=== PATIENT | male | born 1955 | race African-American/Black ===

== ENCOUNTER 2024-02-18 12:55 | Emergency (ER) | payer BC, SELFPAY ==
[2024-02-18 12:58] VITALS: BMI 29.3
[2024-02-18 13:05] VITALS: BP 130/78
--- NOTE | 2024-02-18 13:55 | ED.GENMED ---
History of Present Illness
General
Chief Complaint: Skin Problem
Source: patient
Exam Limitations: none
Time Seen by Provider: 02/18/24 13:24
Nursing documentation reviewed up to this point in time: agreed with
History of Present Illness
History of Present Illness:
68-year-old male diabetic hypertensive from a local care facility underwent a local I&D in his right groin for infection few months ago at an outside hospital apparently has been recuperating at a facility developed increased pain and swelling with
a likely abscess of his right thigh distal to the prior area no fever no nausea no vomiting, sent here for CAT scan, was started on antibiotics recently he had a hip replacement 3 years ago to the same side he has no pain in his hip no pain with
range of motion
Phy Exam
Physical Exam
Physical Exam:
Physical Exam
General: no apparent distress, not acutely ill
Neck: No jaundice
Heart: Regular
Lungs: no acute respiratory distress.
Neuro: alert and oriented. no focal neurological deficits
Skin: no rash
Psychiatric: well kept. interactive and cooperative
Extremities: Right groin postoperative scars clean slightly moist without overt signs of infection mid right thigh fluctuant tender area approximately 10 x 15 cm
Course
Orders/Labs/Results
Orders:
Orders
02/18/24 13:34
IV Insert/Care/Rem.- Treatment PRN
02/18/24 13:38
CT Lower Ext W/iv Cont Rt Urgent
Comment:
Reason For Exam: swelling
02/18/24 13:47
Complete Blood Count/With Diff Urgent
Comprehensive Metabolic Panel Urgent
PTT Urgent
Prothrombin Time Urgent
02/18/24 13:48
Blood Culture Urgent
VIV Source: Blood/Venous
Specimen Description:
02/18/24 13:53
Lactic Acid Urgent
02/18/24 16:02
Wound Dressing- Treatment ONCE
Location of Wound: leg
Treatment of Wound: dry
Wound Culture [Wound/Abscess/Other Culture] Urgent
VIV Source: Abscess
Specimen Description:
HYDROmorphone [Dilaudid] 1 mg IV NOW STA
Piperacillin/Tazo 3.375 Gram [Zosyn] 3.375 gram in 50 ml IV NOW
Abnormal Lab Results
02/18/24
13:47
RBC 3.63 L 10^6/uL
(4.70-6.10)
Hgb 10.3 L g/dL
(13.0-18.0)
Hct 30.5 L %
(39.0-52.0)
RDW 15.1 H %
(11.5-14.5)
Lymphocytes % 18.6 L %
(20.5-51.1)
PT 18.6 H Sec
(11.4-14.6)
APTT 42.3 H Sec
(23.4-35.0)
BUN 22 H mg/dl
(9-20)
Creatinine 1.4 H mg/dL
(0.7-1.3)
Glucose 155 H mg/dl
(70-99)
02/18/24 13:47
02/18/24 13:47
Vital Signs
Initial and Last Documented VS:
Initial Vital Signs
Temp Pulse Resp BP Pulse Ox
99.1 F 76 16 130/78 96
02/18/24 13:05 02/18/24 13:05 02/18/24 13:05 02/18/24 13:05 02/18/24 13:05
Last Documented Vital Signs
Temp Pulse Resp BP Pulse Ox
99.1 F 72 17 94/51 94
02/18/24 13:05 02/18/24 15:00 02/18/24 15:00 02/18/24 15:00 02/18/24 15:00
Procedures
Incision/Drainage/Joint Aspiration
Right medial thigh:
Anethesia: 1% Lidocaine with Epi
Preparation: cleaned with Betadine
Type of procedure: drain
Nature of site: abscess
Description of abscess: greater than 3cm and drainage
How much fluid was obtained?: large amount
Fluid description: purulent
Treatment: packed with gauze and antibiotics started
Additional information:
Verbal consent timeout, local anesthetic No. 11 blade
MDM/Problems Addressed
Differential Diagnosis Includes:
Abscess hematoma seroma no clear evidence that this is related to his hip replacement 3 years ago
MDM/Problems Addressed:
Right thighs
Chronic conditions affecting care: DM and HTN
Acute Exacerbation and/or Progression of Chronic Illness: DM and HTN
*Radiology
Radiology exam reviewed: preliminary read by ED provider
*Pulse Oximetry
Patient hypoxic: no
*Critical Care Note
Total Time (30-74mins, 75-104mins- exclusive of procedures): Not Applicable
Update Note
Update Note:
Update labs noted CT noted reviewed with radiology will proceed with drainage
ED Attending Note
-
Portions of this chart may have been created with voice recognition software.� Occasional wrong word or��sound alike� substitutions may have occurred due to the inherent limitations of voice recognition software.
Discharge Plan
Departure
Prescriptions:
No Action
atorvastatin [Lipitor] 80 mg Tablet
80 mg PO HS
acetaminophen [Tylenol] 325 mg Tablet
650 mg PO Q6HPRN PRN (Reason: mild pain)
ipratropium-albuterol [DuoNeb] 0.5 mg-3 mg(2.5 mg base)/3 mL Solution For Nebulization
3 ml INHALATION R BID
amiodarone 200 mg Tablet
400 mg PO DAILY
sulfamethoxazole-trimethoprim [Bactrim DS] 800-160 mg Tablet
1 tab PO BID
carvedilol [Coreg] 3.125 mg Tablet
3.125 mg PO BID
amlodipine [Norvasc] 10 mg Tablet
10 mg PO DAILY
bisacodyl [Dulcolax (bisacodyl)] 10 mg Suppository
10 mg AK DAILYPRN PRN (Reason: if no bm aftr mom)
lidocaine 5 % Adhesive Patch,Medicated
1 patch TOPICAL DAILY
calcium carbonate [Tums] 200 mg calcium (500 mg) Tablet,Chewable
200 mg PO AC
losartan 25 mg Tablet
25 mg PO DAILY
Humulin 70/30 Insulin Pen 100 unit/mL (70-30) Insulin Pen
35 unit SC BID
guaifenesin 600 mg Tablet Extended Release 12hr
600 mg PO BID
ondansetron HCl [Zofran] 4 mg Tablet
4 mg PO Q6HPRN PRN (Reason: nausea)
omeprazole 40 mg Capsule,Delayed Release(Dr/Ec)
40 mg PO DAILY
magnesium hydroxide [Milk of Magnesia] 400 mg/5 mL Suspension
2,400 mg PO HSPRN PRN (Reason: constipation)
metformin 1,000 mg Tablet
1,000 mg PO BID
oxycodone 5 mg Tablet
5 mg PO Q4HPRN PRN (Reason: severe pain)
Referrals:
Roly Juárez MD [Family Provider] -
Interventions
Interventions:
*Risk Screen - Suicide Last Done: 02/18/24 12:58
*General Assessment Last Done: 02/18/24 12:58
*Neglect/Abuse Screening Last Done: 02/18/24 12:58
ED- Fall Risk Assessment Last Done: 02/18/24 13:10
*ED COVID-19 Vaccine History Last Done: 02/18/24 13:05
ED-Skin Assessment Last Done: 02/18/24 13:10
Discharge Date and Time
Print Language: CROATIAN
--- NOTE | 2024-02-18 13:57 | EDRN ---
Pt states he was sent here for CT scan and not US that he had had an US just 2 days ago. Pt states he was at [facility] on 01/24 and R groin infection was drained in ER then he was admitted to ICU.
[2024-02-18 14:00] VITALS: BP 119/65
[2024-02-18 14:01] LABS: % Basophils 0.3 % (0-2); % Eosinophils 1.3 % (0-6); % Immature Granulocytes 0.3 % (0-0.5); % Lymphocytes 18.6 % (20.5-51.1); % Monocytes 8.2 % (1.7-9.3); % Neutrophils 71.3 % (42.2-75.2); Absolute Eosinophils 0.1 10^3/uL (0-0.7); Absolute Lymphocytes 1.3 10^3/uL (1.2-3.4); Absolute Monocytes 0.6 10^3/uL (0.1-0.6); Absolute Neutrophils 4.8 10^3/uL (1.4-6.5); Hematocrit 30.5 % (39.0-52.0); Hemoglobin 10.3 g/dL (13.0-18.0); Mean Corp Hgb Conc. 33.8 g/dL (33.0-37.0); Mean Corpuscular Hgb 28.4 pg (27.0-31.0); Mean Platelet Volume 9.3 fL (7.4-10.4); Nucleated Red Blood Cells % 0 % (-); Platelet Count 334 10^3/uL (130-400); Red Blood Cell Count 3.63 10^6/uL (4.70-6.10); Red Cell Dist. Width 15.1 % (11.5-14.5); White Blood Cell Count 6.7 10^3/uL (4.8-10.8)
[2024-02-18 14:13] LABS: INR 1.57; PT 18.6 Sec (11.4-14.6)
[2024-02-18 14:14] LABS: APTT 42.3 Sec (23.4-35.0)
[2024-02-18 14:15] LABS: Lactic Acid 1.9 mmol/L (0.7-2.0)
[2024-02-18 14:15] LABS: ALT (SGPT) 18 U/L (0-50); AST (SGOT) 27 U/L (17-59); Albumin 3.9 g/dl (3.5-5.0); Alkaline Phosphatase 82 U/L (38-126); Blood Urea Nitrogen 22 mg/dl (9-20); Calcium 9.3 mg/dl (8.4-10.2); Carbon Dioxide 25 mmol/L (22-30); Chloride 102 mmol/L (98-107); Estimated Creatinine Clearance 51 ml/min; Glucose 155 mg/dl (70-99); Potassium 4.7 mmol/L (3.5-5.1); Sodium 139 mmol/L (135-145); Total Bilirubin 0.4 mg/dl (0.2-1.3); Total Protein 7.1 g/dl (6.3-8.2); eGFR 55.09
--- NOTE | 2024-02-18 14:30 | PHANOTE ---
med rec note- called longterm, missing page 6 of medication list
[2024-02-18 15:00] VITALS: BP 94/51
[2024-02-18 16:00] VITALS: BP 112/70
[2024-02-18] MEDS: ZOSYN 50 IV (16:13)
[2024-02-18] MEDS: DILAUDID 1 MG IV (16:13)
--- NOTE | 2024-02-18 16:21 | EDRN ---
Dr. Dawson is performing I&D of abscess at this time.
--- NOTE | 2024-02-18 16:50 | EDRN ---
R upper leg abscess that had I&D and packing placed was cleansed w/ soap and water, rinsed w/ saline and dressed w/ double antibiotic ointment, adaptic, ABD and kerlix. R groin wound dressing was falling off so area was cleansed w/ soap and water,
rinsed w/ saline, and dressed w/ 2 abd pads and tape.
--- NOTE | 2024-02-18 17:26 | EDRN ---
Clerk Bryson is arranging for transport back to [facility] at this time. Pt since his groin infection has not been ambulatory.
--- NOTE | 2024-02-18 18:15 | EDRN ---
At 1740 pt was fed a boxed lunch. Pt is awaiting acute care ambulance which is scheduled to arrive at 18:15 to take him back to [facility].
--- NOTE | 2024-02-18 18:36 | EDRN ---
Attempting to call report to [facility] at this time.
--- NOTE | 2024-02-18 18:37 | EDRN ---
[facility] unable to take call for report at this time.
--- NOTE | 2024-02-18 18:50 | EDRN ---
Second attempt to call report to [facility] at [phone].
--- NOTE | 2024-02-18 18:54 | EDRN ---
REport called to Chanelle Valencia RN at [facility] tel # [phone] at this time.
== END 2024-02-18 18:55 ==
LOC: EMR 12:55
PROVIDERS: EMERGENCY PHYSICIAN Emergency Medicine; FAMILY PHYSICIAN Internal Medicine
DX: L02.415 Cutaneous abscess of right lower limb (principal); I10 Essential (primary) hypertension; E11.9 Type 2 diabetes mellitus without complications
CPT/HCPCS: 99285; 10060; 96365; 96375; 73701; 80053; 83605; 85025; 85610; 85730; 87040; 87070; 87205; Q9967